=== PATIENT | male | born 1970 | race Caucasian/White ===

== ENCOUNTER 2020-07-21 10:36 | Outpatient (CLI) | payer BC, SELFPAY | END 2020-07-21 10:37 | disposition home or self-care (01) | PROVIDERS: PCP Internal Medicine; Visit Provider Internal Medicine Critical Care Medicine | DX: J45.909 Unspecified asthma, uncomplicated (principal) | CPT/HCPCS: 36415; 82785; 86003 ==

== ENCOUNTER 2021-05-20 17:51 | Emergency (ER) | payer BC, SELFPAY ==
[2021-05-20 17:55] VITALS: BP 145/95; PULSE 72; RESP 16; TEMP 36.7; O2SAT 98
[2021-05-20 18:16] LABS: Basophils Absolute Auto 0.1 K/mm3 (0.0-0.1); Basophils Percent Auto 0.7 % (0.2-1.2); Eosinophils Absolute Auto 0.1 K/mm3 (0-0.3); Eosinophils Percent Auto 1.9 % (0-4.4); Hematocrit 51.1 % (42.0-52.0); Hemoglobin 16.1 g/dL (14.0-18.0); Immature Granulocyte Absolute 0.01 K/mm3 (0.00-0.031); Immature Granulocyte Percent A 0.1 % (0-0.5); Lymphocytes Absolute Auto 1.67 K/mm3 (0.9-3.2); Lymphocytes Percent Auto 24.2 % (18.3-44.2); Mean Corpuscular HGB Conc 31.5 g/dl (32-36); Mean Corpuscular Hemoglobin 26.9 pg (26-34); Mean Corpuscular Volume 85.3 fl (80-100); Mean Platelet Volume 9.8 fl (7.4-10.4); Monocytes Absolute Auto 0.8 K/mm3 (0.1-0.6); Monocytes Percent Auto 10.9 % (2.6-8.5); Neutrophils Absolute Auto 4.3 K/mm3 (1.3-6.7); Neutrophils Percent Auto 62.2 % (45.5-73.1); Platelet Count Result 266 k/mm3 (150-375); Red Blood Count 5.99 M/mm3 (4.6-6.20); White Blood Count 6.9 K/mm3 (4.5-10.0)
[2021-05-20 18:25] LABS: INR 0.9; Prothrombin Time 12.1 Seconds (11.1-14.7)
[2021-05-20 18:26] LABS: Alanine Aminotransferase 35 U/L (4-50); Albumin Level 4.6 g/dL (3.5-5.1); Alkaline Phosphatase 72 U/L (38-126); Anion Gap 9 mmol/L (8-16); Aspartate Amino Transferase 67 U/L (17-59); Bilirubin,Total 0.3 mg/dL (0.2-1.3); Blood Urea Nitrogen 19 mg/dL (9-20); Calcium 9.2 mg/dL (8.4-10.2); Carbon Dioxide 25 mmol/L (22-30); Chloride 102 mmol/L (98-107); Estimated CRCL calculation 60 ml/min; Estimated Glomerular Filt Rate 50; Glucose 88 mg/dL (65-110); Partial Thromboplastin Time 27.5 SECONDS (22.3-36.8); Potassium 3.7 mmol/L (3.4-5.0); Sodium 136 mmol/L (137-145)
--- NOTE | 2021-05-20 21:50 | ED.GIBLEED ---
HPI - GI Bleed General Chief complaint: GI Bleed Stated complaint: gi bleeding Time Seen by Provider: 05/20/21 21:26 Source: patient and family Mode of arrival: ambulatory Limitations: no limitations History of Present Illness HPI Narrative: 50-year-old male Basically healthy Here for evaluation of rectal bleeding Patient was seen at an urgent care roughly 3-1/2 to 4 weeks ago and diagnosed with diverticulitis A CT scan was done at that time he was subsequently treated with a dual antibiotics with resolution of his symptoms Scheduled to follow-up with Today he reported having a couple of large stools with gross blood intermixed He does not have an increase in pain or a fever or any other change in his bowel habits He does not have any lightheadedness No other bleeding issues He does take testosterone supplements Related Data Home Medications Medication Instructions Recorded Confirmed ciprofloxacin HCl 500 mg tablet 500 mg PO Q12H 05/05/21 05/05/21 metronidazole 250 mg tablet 250 mg PO Q8H 05/05/21 05/05/21 Allergies Allergy/AdvReac Type Severity Reaction Status Date / Time alcohol AdvReac Unknown unknown Verified 05/05/21 07:41 [From Mastisol Liquid Adhesive] gum mastic AdvReac Unknown unknown Verified 05/05/21 07:41 [From Mastisol Liquid Adhesive] methyl salicylate AdvReac Unknown unknown Verified 05/05/21 07:41 [From Mastisol Liquid Adhesive] storax AdvReac Unknown unknown Verified 05/05/21 07:41 [From Mastisol Liquid Adhesive] Review of Systems Review of Systems: All systems reviewed & are unremarkable except as noted in HPI and below Constitutional: Constitutional: Reports no additional constitutional complaints, Denies chills, Denies fatigue, Denies fever(s), Denies headache(s) and Denies weakness ENT: Denies headache(s) Cardiovascular: Cardiovascular: Denies chest pain and Denies dyspnea Respiratory: Respiratory: Denies cough and Denies dyspnea Gastrointestinal: Gastrointestinal: Reports no additional gastrointestinal complaints Musculoskeletal: Musculoskeletal: Denies deformity and Denies numbness Integumentary/Breasts: Skin/Breast: Denies wounds Neurologic: Denies dizziness and Denies syncope Hematologic/Lymphatic: Hematologic/Lymphatic: Denies easy bleeding and Denies easy bruising Allergic/Immunologic: Allergic/Immunologic: Reports no additional allergic/immunologic complaints PMFSH Past Medical History Medical History Asthma Asthma BMI 29.0-29.9,adult Diverticula of intestine Surgical History Surgical History H/O knee surgery History of back surgery Family History Family History Father Heart disease Diabetes mellitus Hypertension Mother Diabetes mellitus Hypertension Depression Sibling Alcohol abuse Lung cancer Hypertension Depression Thyroid disease Social History Social History Smoking status: Never smoker Alcohol intake: current Substance use: unknown Exam Const: General: cooperative and no acute distress Orientation/consciousness: patient oriented x3 (alert) HENMT: Head: normal to inspection, normocephalic and atraumatic Ears: external ears normal General nose exam: no epistaxis Eyes: Conjunctivae: conjunctivae normal EOM: EOMs intact bilaterally Neck: Neck: normal visual inspection, supple and no JVD Resp: Effort & Inspection: normal respiratory effort and not labored Auscultation: other (BS =) GI: GI Palp: Yes Soft to palpation, Yes Tenderness to palpation present (GI) (Slightly tender in the left lower quadrant), No Guarding due to palpation present (GI) and No Rebound tenderness present Rectal Exam: heme positive stool Skin: General skin exam: stephy
[2021-05-20 22:48] VITALS: BP 149/86; PULSE 64; RESP 18; O2SAT 98
== END 2021-05-20 22:51 | disposition home or self-care (01) ==
LOC: ANHED 22:09
PROVIDERS: Emergency Medicine; Emergency Provider Emergency Medicine; PCP Family Medicine
DX: K57.32 Diverticulitis of large intestine without perforation or abscess without bleeding (principal)
CPT/HCPCS: 36415; 80053; 85025; 85610; 85730; 86850; 86900; 86901; 99283

== ENCOUNTER → 2021-05-27 03:53 | Outpatient (CLI) | payer BC, SELFPAY ==
[2021-05-27 18:23] LABS: SARS-CoV-2 RNA PCR Negative
== END ==
PROVIDERS: PCP Family Medicine; Visit Provider Internal Medicine Gastroenterology
DX: Z01.812 Encounter for preprocedural laboratory examination (principal); Z20.822 Contact with and (suspected) exposure to COVID-19
CPT/HCPCS: C9803; U0003; U0005

== ENCOUNTER 2021-05-30 01:39 | Day surgery (SDC) | payer BC, SELFPAY ==
[2021-05-25 16:08] VITALS: BMI 30.9
--- NOTE | 2021-05-30 13:17 | WPDANESEPPF ---
Anes - Initial Pre Proc Eval Procedure: Operation Date: 05/30/21 13:45 Proposed Procedures p Colonoscopy - Robel Germain MD Date/Time: 05/30/21 13:17 Surgeon: Robel Germain MD Pre Op Diagnosis: diverticulitis Patient Data Age: 50 Gender: M Height: 1.75 m Weight: 95 kg Allergies Allergy/AdvReac Type Severity Reaction Status Date / Time alcohol AdvReac Severe Blister Verified 05/30/21 13:18 [From Mastisol Liquid Adhesive] gum mastic AdvReac Severe unknown Verified 05/30/21 13:18 [From Mastisol Liquid Adhesive] methyl salicylate AdvReac Severe unknown Verified 05/30/21 13:18 [From Mastisol Liquid Adhesive] storax AdvReac Severe unknown Verified 05/30/21 13:18 [From Mastisol Liquid Adhesive] Home Medications Medication Instructions Recorded Confirmed Type Adults Multivitamin 1 cap PO DAILY 05/25/21 05/25/21 History albuterol sulfate [ProAir 2 inh INHALATION PRN PRN 05/25/21 05/25/21 History RespiClick] potassium gluconate 595 mg PO DAILY 05/25/21 05/25/21 History prasterone (dhea) [DHEA] 25 mg PO DAILY 05/25/21 05/25/21 History Patient hx anesthesia problems: none Family hx anesthesia problems: none PMFSH Past Medical History Medical History Asthma Asthma BMI 29.0-29.9,adult Diverticula of intestine Surgical History Surgical History H/O knee surgery History of back surgery Family History Family History Father Heart disease Diabetes mellitus Hypertension Mother Diabetes mellitus Hypertension Depression Sibling Alcohol abuse Lung cancer Hypertension Depression Thyroid disease Social History Social History Smoking status: Never smoker Alcohol intake: current Drinks per week: 6 Substance use: never Substance use type: does not use Living arrangements: with family Spiritual care concerns: No Anes - Eval Final PreProcedure Day of Procedure 05/30/21 13:17 Patient weight: obese Heart: regular rate and rhythm Lungs: clear to auscultation and normal air movement Airway: Mallampati scale class II Neurological: alert and oriented Last oral intake: >/= 8 hours ASA classification: II Emergent: no Anesthetic plan: proceed Anesthesia type and monitoring: general GIVS and standard monitoring Informed Consent: The patient's anesthetic plan and its attendant risks and benefits were discussed with the patient/family/POA. Questions were solicited and answers provided to the satisfaction of the patient/family/POA.
[2021-05-30 13:19] VITALS: BP 132/97; PULSE 71; RESP 16; TEMP 36; O2SAT 99; BMI 30.4
[2021-05-30] MEDS: LACTATED RINGERS 1,000 ML 150 ML IV CONT (13:31)
--- NOTE | 2021-05-30 14:02 | PM.HPGS ---
History of Present Illness History of Present Illness Consent: Risks, benefits, and alternatives have been discussed and questions answered. Patient agrees to proceed with procedure. Chief complaint: diverticulitis Narrative: Ko Salazar is a 50 year old male with diverticulitis treated as outpatient, now asymptomatic. He had colonoscopy in his 20's because rectal bleeding. Review of Systems Constitutional: Constitutional: Denies headache(s) and Denies weakness Eyes: Eyes: Denies blurry vision ENT: Reports Normal hearing present, Denies headache(s) and Denies neck pain Cardiovascular: Cardiovascular: Denies chest pain and Denies dyspnea Respiratory: Respiratory: Denies dyspnea Gastrointestinal: Gastrointestinal: Reports no additional gastrointestinal complaints Genitourinary: Genitourinary: Denies dysuria Musculoskeletal: Musculoskeletal: Denies neck pain Integumentary/Breasts: Skin/Breast: Denies dry skin Neurologic: Reports Normal hearing present, Denies headache(s) and Denies weakness Psychiatric: Psychiatric: Denies anxiety Endocrine: Endocrine: Denies change in body appearance Hematologic/Lymphatic: Hematologic/Lymphatic: Denies easy bleeding Allergic/Immunologic: Allergic/Immunologic: Denies urticaria PMFSH Past Medical History Medical History Asthma Asthma BMI 29.0-29.9,adult Diverticula of intestine Surgical History Surgical History H/O knee surgery History of back surgery Family History Family History Father Heart disease Diabetes mellitus Hypertension Mother Diabetes mellitus Hypertension Depression Sibling Alcohol abuse Lung cancer Hypertension Depression Thyroid disease Social History Social History Smoking status: Never smoker Alcohol intake: current Drinks per week: 6 Substance use: never Substance use type: does not use Living arrangements: with family Spiritual care concerns: No Meds Home Medications and Allergies Home Medications Medication Instructions Recorded Confirmed Type Adults Multivitamin 1 cap PO DAILY 05/25/21 05/30/21 History albuterol sulfate [ProAir 2 inh INHALATION PRN PRN 05/25/21 05/30/21 History RespiClick] potassium gluconate 595 mg PO DAILY 05/25/21 05/30/21 History prasterone (dhea) [DHEA] 25 mg PO DAILY 05/25/21 05/30/21 History Allergies Allergy/AdvReac Type Severity Reaction Status Date / Time alcohol AdvReac Severe Blister Verified 05/30/21 13:18 [From Mastisol Liquid Adhesive] gum mastic AdvReac Severe unknown Verified 05/30/21 13:18 [From Mastisol Liquid Adhesive] methyl salicylate AdvReac Severe unknown Verified 05/30/21 13:18 [From Mastisol Liquid Adhesive] storax AdvReac Severe unknown Verified 05/30/21 13:18 [From Mastisol Liquid Adhesive] Vital Signs Vital Signs - 24 hr 05/30/21 13:19 Temperature 96.8 F L Pulse Rate 71 Respiratory Rate 16 Blood Pressure 132/97 H Pulse Oximetry 99 Exam Const: General: comfortable and no acute distress HENMT: General nose exam: Normal nares present Eyes: General: appearance normal, both eyes and all related structures Neck: Neck: no JVD Resp: Auscultation: clear to auscultation bilaterally Cardio: Rate: regular rate Rhythm: regular rhythm GI: Inspection: non-distended GI Palp: Yes Soft to palpation Skin: General skin exam: normal color Neuro: General: gait normal Speech: normal speech Extrem: General: normal to inspection Psych: Mental Status: mental status grossly normal Assessment and Plan Assessment and plan (1) Diverticula of intestine: Code(s): K57.30 - Diverticulosis of large intestine without perforation or abscess without bleeding
[2021-05-30 14:28] VITALS: BP 117/60; PULSE 60; RESP 16; O2SAT 98
[2021-05-30 14:38] VITALS: BP 112/68; PULSE 58; RESP 19; O2SAT 98
[2021-05-30 14:48] VITALS: BP 118/60; PULSE 54; RESP 18; O2SAT 99
== END 2021-05-30 15:19 | disposition home or self-care (01) ==
PROVIDERS: PCP Family Medicine; Visit Provider Internal Medicine Gastroenterology
PROC: 0DJD8ZZ Inspection of Lower Intestinal Tract, Via Natural or Artificial Opening Endoscopic (ICD-10-PCS; CPT 45378; principal; 2021-05-30 13:45)
DX: K57.30 Diverticulosis of large intestine without perforation or abscess without bleeding (principal); K64.8 Other hemorrhoids; J45.909 Unspecified asthma, uncomplicated; Z79.51 Long term (current) use of inhaled steroids; E66.9 Obesity, unspecified; Z68.30 Body mass index [BMI] 30.0-30.9, adult
CPT/HCPCS: 45378; C9803; J2704; J7120; U0003; U0005